=== PATIENT | male | born 1995 | race Caucasian/White ===

== ENCOUNTER 2017-05-11 19:38 | Emergency (ER) | payer BC ==
[~2017-05-11] VITALS: Ht 190.5 cm; Wt 92.8 kg
[2017-05-11 19:56] VITALS: TEMP 36.9; Ht 190.5 cm; Wt 92.8 kg
[2017-05-11] MEDS ORDERED: LIDOCAINE/EPINEPHRINE 1% 20 ML VIAL INFIL STA (21:07)
[2017-05-11] MEDS ORDERED: MULT-506 PO (21:27)
--- NOTE | 2017-05-11 21:48 | EMERGENCY ROOM VISIT NOTE ---
ED Visit Note First contact with patient: 20:49 Chief Complaint: "Cut above left eye". History of Present Illness: This patient is a 22-year-old male who presents to the Emergency Department via private vehicle for evaluation of their left eyebrow laceration. Patient sustained the laceration while playing basketball, when he struck as with other player. They report a minimal amount of bleeding initially. There was no loss of consciousness. This happened about 1.5 hours prior to arrival. He rates his pain as a 5/10. There is no headache, loss of consciousness, vision changes, confusion, balance issues. His tetanus is up-to- date. Medications: As noted below Allergies: Amoxicillin PMH: No pertinent SHx: Patient is a [employer] student and lives locally. ROS: All pertinent positive and negative review of systems are appropriately documented in the History of Present Illness. Physical Exam: VITAL SIGNS - Vital signs and nursing notes were reviewed. Stable. GENERAL -22-year-old male appearing his stated age. Communicates well with provider and answers questions appropriately. SKIN - There is a 2 cm laceration noted superior left eyebrow that extends into the left upper eyelid. The edges gape apart with traction. There is minimal active bleeding appreciated. No deep structures including vessels, musculature, or bony structures are appreciated. HEAD - Normocephalic. No Lee's Sign or Raccoon's Eyes. No depressed skull fractures palpable. EYES - PERRL with EOMI bilaterally. Without subconjunctival hemorrhage. No hyphema. EARS - No deformities of external structures noted on gross examination bilaterally. No hemotympanum present. No tympanic perforation noted. NOSE - Midline and without cyanosis. No epistaxis or clear watery discharge noted. Septum midline without deviation. No septal hematoma noted. No overlying ecchymosis noted. MOUTH/OROPHARYNX - Without perioral cyanosis. Tongue midline with equal elevation of palate bilaterally. No blood noted in the oropharynx. No tonsillar hypertrophy, erythema, or exudates noted. No dental fractures noted. NECK - FROM assessed. No tenderness to palpation over the cervical spinous processes. No cervical paraspinal muscle tenderness noted. ED Course: Patient was seen and evaluated by myself. Patient had no focal neurological deficits. Patient's exam is otherwise unremarkable. Patient reports no headaches , visual disturbances, nausea, vomiting, or over-lethargy. Risks and benefits of performing primary wound closure versus no repair were discussed with the patient who verbalizes understanding. Verbal consent was obtained prior to performing the procedure. 3 cc of 1% buffered lidocaine with epinephrine was used to anesthetize the 2 cm laceration. The wound was cleansed and prepped in the typical sterile fashion utilizing normal saline. The wound was sterilely draped. Once proper anesthetization was established, the wound was further examined and demonstrated no deep involvement. The wound was copiously irrigated with normal saline. The wound was closed using 4 simple, 6-0 nylon sutures with the wound edges being well approximated. Patient tolerated the procedure well. No complications were met. The wound was cleansed and dressed with a Bacitracin dressing. Patient educated on worrisome symptoms for return visit to the Emergency Department. Patient discharged to home in good condition. Current/Historical Medications Scheduled Multivitamin (Multivitamin), 1 TAB PO DAILY Allergies Coded Allergies: Amoxicillin (Unverified Allergy, Mild, strep throat, hives, 05/11/17) Vital Signs Date Time Temp Pulse Resp B/P (MAP) Pulse Ox O2 Delivery O2 Flow Rate FiO2 05/11/17 21:57 57 129/68 97 05/11/17 19:56 36.9 62 16 127/80 98 Room Air Departure Information Impression Primary Impression: Laceration Dispostion Home / Self-Care Condition GOOD Referrals [facility] (PCP) Patient Instructions [facility] Additional Instructions Discharge Instructions: You have received 4 sutures on your face. These sutures are NOT dissolvable and WILL need to be removed by a health care provider in 6 days. You can return to the Emergency Department or contact your Primary Care Provider to have the sutures removed. Proper wound care is essential for adequate wound healing and infection prevention. You can shower and clean the wound with soap and water. Do not scour over the wound, pat dry with a towel. Do not submerse the wound (i.e. bathe or dish wash) until the sutures have been removed. You can use an antibiotic ointment with a dressing over the wound for the next 2-3 days. After this time you may leave the wound dry and open to the air. If crust develops over the wound you can use a Q-tip to apply a 1:1 peroxide:water solution to clean the wound. Look for signs of infection of the wound including: increased pain, swelling, foul discharge, streaking, or increased temperature. If any of these are noticed you should return to the Emergency Department for further assessment and treatment. As with any laceration you may have received nerve damage to the surrounding tissues. This damage may or may not be permanent. You should keep the area covered with sunscreen for the first 6 months to 1 year when at risk for exposure to help minimize scarring. You can also use scar reducing creams or Vitamin E oil to help minimize scarring. For pain control, you can use the following cucf-ofw-rtieijd medicines (if >12 yo): - Regular strength (325mg/tab) Tylenol (acetaminophen) 2 tabs every 4-6 hours as needed. Do not exceed 12 tablets in a 24 hour period. Avoid taking more than 3 grams (3000 mg) of Tylenol per day. This includes any other sources of acetaminophen you may take on a regular basis. - Regular strength (200 mg/tab) Advil (ibuprofen) 1-2 tabs every 4-6 hours as needed. Do not exceed a dose of 3200 mg per day. Return to the emergency department if your symptoms worsen despite treatment course outlined above.
[2017-05-11 21:57] VITALS: BP 129/68; PULSE 57; O2SAT 97
== END 2017-05-11 21:55 | disposition home or self-care (01) ==
LOC: C.EDB 19:40 → C.EDD 21:55
DX: S01.112A Laceration without foreign body of left eyelid and periocular area, initial encounter (principal); W50.0XXA Accidental hit or strike by another person, initial encounter; Y93.67 Activity, basketball; Y92.310 Basketball court as the place of occurrence of the external cause

== ENCOUNTER 2017-05-17 09:58 | Emergency (ER) | payer BC ==
[~2017-05-17] VITALS: Ht 190.5 cm; Wt 92.1 kg
[~2017-05-17 09:58] MED LIST: MULT-506 PO
[2017-05-17 10:24] VITALS: BP 117/62; PULSE 46; TEMP 36.7; O2SAT 97; Ht 190.5 cm; Wt 92.1 kg
--- NOTE | 2017-05-17 10:37 | EMERGENCY ROOM VISIT NOTE ---
ED Visit Note First contact with patient: 10:28 CHIEF COMPLAINT: Suture removal HPI: This patient returns to the ED today for removal of sutures that were placed 6 days ago. There has been no swelling, redness, or drainage from the wound. The patient feels like the laceration is healing well. REVIEW OF SYSTEMS: A complete 6 point review of systems was reviewed with the patient with pertinent positives and negatives as per history of present illness. All else were negative. PMH: The patient is healthy; there is no significant medical or surgical history. SOCIAL HISTORY: Patient lives locally with roommates. He denies drug, alcohol, tobacco use. PHYSICAL EXAM: Vital Signs: Reviewed Nurse's notes. There is a sutured wound on the inferior left eyebrow with no signs of infection. There is no erythema, swelling, or tenderness. EMERGENCY DEPARTMENT COURSE: The patient seen and evaluated as above. The 4 sutures were removed without any difficulty and there was no separation of the wound edges. Discharge instructions reviewed, and the patient was discharged home in good condition. I attest that I have personally reviewed the patient's current medication list. Patient was found to have normal blood pressure on screening and does not require follow-up. DIAGNOSIS: Healing laceration and suture removal Current/Historical Medications Scheduled Multivitamin (Multivitamin), 1 TAB PO DAILY Allergies Coded Allergies: Amoxicillin (Unverified Allergy, Mild, strep throat, hives, 05/11/17) Vital Signs Date Time Temp Pulse Resp B/P (MAP) Pulse Ox O2 Delivery O2 Flow Rate FiO2 05/17/17 10:24 36.7 46 18 117/62 97 Room Air Departure Information Impression Primary Impression: Encounter for removal of sutures Additional Impression: Laceration of face Dispostion Home / Self-Care Condition GOOD Referrals [facility] (PCP) Patient Instructions ED Wound Check Sutr Removal [facility], [facility] Additional Instructions Proper wound care is essential for adequate wound healing and infection prevention. You can shower and clean the wound with soap and water. Do not scour over the wound, pat dry with a towel. Do not submerse the wound (i.e. bathe or dish wash) until the wound has fully healed. You can use an antibiotic ointment with a dressing over the wound for the next 3-4 days. After this time you may leave the wound dry and open to the air. Follow-up with your PCP for any concerns. Return to the emergency department for significant redness, swelling, fever, chills, purulent drainage, nausea, or other concerning symptoms. Problem Qualifiers Additional Impression: Laceration of face Encounter type: subsequent encounter Qualified Codes: S01.81XD - Laceration without foreign body of other part of head, subsequent encounter
== END 2017-05-17 10:31 | disposition home or self-care (01) ==
LOC: C.EDB 09:59 → C.EDD 10:31
DX: Z48.02 Encounter for removal of sutures (principal); S01.81XD Laceration without foreign body of other part of head, subsequent encounter; X58.XXXD Exposure to other specified factors, subsequent encounter